=== PATIENT | male | born 1985 | race Caucasian/White ===

== ENCOUNTER 2018-06-24 08:49 | Emergency (ER) | payer SELFPAY ==
[~2018-06-24] VITALS: Ht 175.3 cm; Wt 75.0 kg
--- NOTE | 2018-06-24 09:06 | NUR ---
PT. ARRIVES BY [facility] WITH C/O ETOH USE, 1/2 GALLON VODKA, THEN A MGLF STRIKING HIS HEAD. [facility]IT[facility] WHILE HE WAS STANDING IN LINE FOR BREAKFAST AT THE [facility]. [facility] + LOC. PT. IS PINK, WARM AND DRY. LUNGS ARE CTA. MM ARE MOIST WITH PULSES +2 THROUGHOUT. PT. IS RESTING WITHOUT CONCERNS. CP MONITOR IN PLACE. SIDERAILS UP X 2 WITH THE CALL LIGHT IN PLACE.
[2018-06-24 10:10] VITALS: BP 113/72
--- NOTE | 2018-06-24 10:22 | NUR ---
PT. WAS BREATHALIZED. PT. IS RESTING WITH THE SIDERAILS UP X 2 AND THE HOB ELEVATED GREATER THAN 30 DEGREES. CALL LIGHT IS IN PLACE. PT. WAS INSTRUCTED TO NOT GET UP WITHOUT ASSISTANCE. UNDERSTANDING VERBALIZED.
--- NOTE | 2018-06-24 11:08 | NUR ---
PT. IS NOT IN HIS ROOM, GOWN ON THE STRETCHER.
--- NOTE | 2018-06-24 11:16 | NUR ---
PT. HAD DCD' HIS OWN IV, IT WAS FOUND ON THE STRETCHER.
== END 2018-06-24 11:10 | disposition left against medical advice (07) ==
LOC: ED 10:17
DX: S00.12XA Contusion of left eyelid and periocular area, initial encounter (principal); F10.220 Alcohol dependence with intoxication, uncomplicated; Z71.41 Alcohol abuse counseling and surveillance of alcoholic; W19.XXXA Unspecified fall, initial encounter; Y93.89 Activity, other specified; Y92.410 Unspecified street and highway as the place of occurrence of the external cause; Y99.8 Other external cause status
CPT/HCPCS: 70450; 99284

== ENCOUNTER 2019-09-13 17:36 | Emergency (ER) | payer MEDICAID ==
[~2019-09-13] VITALS: Ht 172.7 cm; Wt 70.7 kg
--- NOTE | 2019-09-13 18:19 | NUR ---
PT TO ED FOR SEIZURE LAST NOC WHILE SLEEPING. NO HX SEIZURES. PT STATES "CONVULSIONS" WERE WITNESS BY SO. PT BIT LEFT SIDE OF TONGUE AND URINATED. PT STATES HE DRINKS 4 BEERS AND 1/5 VODKA EVERY NIGHT. PT STATES HE STOPS DRINKING FOR A WEEK OR SO EVERY COUPLE WEEKS "SO I DON'T DT." PT CONNECTED TO ALL MONITORS. TACHY, ALL OTHER VSS ON RA. PT STATES HE FEELS TREMULOUS ALSO. NO NEEDS EXPRESSED. CALL LIGHT WITHIN REACH. XR COMPLETE. AWAITING EDMD ASSESSMENT.
[2019-09-13] MEDS ORDERED: LORazepam 2 MG/ML, 1ML ONE (18:28)
[2019-09-13] MEDS ORDERED: ONDANSETRON 2MG/ML, 2ML ONE (18:29)
[2019-09-13] MEDS ORDERED: LORazepam 2 MG/ML, 1ML IVPush ONE (18:30)
[2019-09-13] MEDS ORDERED: SODIUM CHLORIDE 0.9% 1,000ML IVBOLUS ONE (18:30)
[2019-09-13] MEDS ORDERED: ONDANSETRON 2MG/ML, 2ML IVPush ONE (18:30)
[2019-09-13] MEDS ORDERED: SODIUM CHLORIDE FLUSH 10ML SYR IVF ONE (18:30)
--- NOTE | 2019-09-13 18:32 | NUR ---
PT STATES HE HASN'T HAD A DRINK IN 4 DAYS.
--- NOTE | 2019-09-13 18:47 | NUR ---
PT RESTIN IN ROOM. TACHY, ALL OTHER VSS. PIV ESTABLISHED AND LABS DRAWN. AWAITING RESUTLS.
[2019-09-13 19:03] LABS: BASOPHILS % (AUTO) 0 % (0-1); EOSINOPHILS # (AUTO) 0.03 x10^3/uL (0-0.4); EOSINOPHILS % (AUTO) 0 % (1-7); LYMPHOCYTES # (AUTO) 0.86 x10^3/uL (1-3.4); LYMPHOCYTES % (AUTO) 9 % (22-44); MD NO; MEAN CORPUSCULAR HEMOGLOBIN 31.6 pg (27.5-34.5); MEAN CORPUSCULAR HGB CONC 33.7 g/dL (33.2-36.2); MEAN CORPUSCULAR VOLUME 93.8 fL (81-97); MEAN PLATELET VOLUME 7.6 fL (7.4-10.4); MONOCYTES # (AUTO) 0.66 x10^3/uL (0.2-0.8); MONOCYTES % (AUTO) 7 % (2-9); NEUTROPHILS # (AUTO) 7.67 x10^3/uL (1.8-6.8); NEUTROPHILS % (AUTO) 83 % (42-75); PLATELET COUNT 153 x10^3/uL (130-400); RED BLOOD COUNT 4.75 x10^6/uL (4.38-5.82); RED CELL DISTRIBUTION WIDTH 14.2 % (9.4-14.8)
--- NOTE | 2019-09-13 19:14 | NUR ---
pt back from ct.
[2019-09-13 19:15] LABS: ALANINE AMINOTRANSFERASE 74 U/L (12-78); ALBUMIN 3.8 g/dL (3.4-5.0); ANION GAP 6 mmol/L (5-15); CHLORIDE 102 mmol/L (98-107); CREATININE 0.97 mg/dL (0.7-1.3)
[2019-09-13 19:16] LABS: ALKALINE PHOSPHATASE 136 U/L (45-117); BILIRUBIN,TOTAL 0.8 mg/dL (0.2-1.0)
--- NOTE | 2019-09-13 19:17 | NUR ---
PT RESTING IN ROOM. VSS. WARM BLANKET PROVIDED FOR COMFORT. NO OTHER NEEDS EXPRESSED. CALL LIGHT WITHIN REACH. AWAITING RESUTLS.
--- NOTE | 2019-09-13 19:34 | NUR ---
sabrina collected and sent to lab.
[2019-09-13] MEDS ORDERED: THIAMINE 100 MG in SODIUM CHLORIDE 0.9% 50 ML IV ONE (20:00)
[2019-09-13 20:06] LABS: AMPHETAMINE SCREEN, URINE Negative (Negative); BARBITURATE SCREEN, URINE Negative (Negative); BENZODIAZEPINE SCREEN, URINE Negative (Negative); CANNABINOID SCREEN, URINE Negative (Negative); COCAINE SCREEN, URINE Negative (Negative); METHADONE SCREEN, URINE Negative (Negative); OPIATE SCREEN, URINE Negative (Negative)
--- NOTE | 2019-09-13 20:18 | NUR ---
ALL RESULTS BACK. CHART UP FOR RECHECK. PT REMAINS TACHY. ALL OTHER VSS ON RA.
--- NOTE | 2019-09-13 21:18 | NUR ---
report to jean pierre hackett.
[2019-09-13 21:28] VITALS: BP 154/84
[2019-09-14] MEDS ORDERED: THIAMINE 100MG TABLET PO SCH (09:00)
== END 2019-09-13 21:56 | disposition home or self-care (01) ==
LOC: ED 19:50
DX: S01.512A Laceration without foreign body of oral cavity, initial encounter (principal); R56.9 Unspecified convulsions; R55 Syncope and collapse; R00.0 Tachycardia, unspecified; M54.2 Cervicalgia; R51 Headache; F10.239 Alcohol dependence with withdrawal, unspecified; Y90.9 Presence of alcohol in blood, level not specified; X58.XXXA Exposure to other specified factors, initial encounter; Y93.89 Activity, other specified; Y92.89 Other specified places as the place of occurrence of the external cause; Y99.8 Other external cause status
CPT/HCPCS: 36415; 70450; 71045; 80053; 80307; 85025; 93005; 96361; 96365; 96375; 99285; J2060; J2405; J3411; J7030

== ENCOUNTER 2019-11-25 21:04 | Emergency (ER) | payer MEDICAID ==
[~2019-11-25] VITALS: Ht 172.7 cm; Wt 96.0 kg
[2019-11-25 21:05] VITALS: BP 140/83
--- NOTE | 2019-11-25 22:47 | NUR ---
POSTERIOR SPLINT IN PLACE. CRUTCHES PROVIDED.
== END 2019-11-25 22:49 | disposition home or self-care (01) ==
LOC: ED 21:15
DX: S92.354A Nondisplaced fracture of fifth metatarsal bone, right foot, initial encounter for closed fracture (principal); F17.200 Nicotine dependence, unspecified, uncomplicated; W18.30XA Fall on same level, unspecified, initial encounter; Y93.89 Activity, other specified; Y92.89 Other specified places as the place of occurrence of the external cause; Y99.8 Other external cause status
CPT/HCPCS: 29515; 99284